=== PATIENT | male | born 1970 | race Caucasian/White ===

== ENCOUNTER 2017-07-06 00:24 | Outpatient (CLI) | payer MEDICARE, MEDICAID ==
[~2017-07-06 00:24] MED LIST: FLUT16SP2; GABA-338 PO; INSU100V36 SQ; LANTUS SQ; NABU500T2 PO; NORCO10T PO; PAM25C PO; RISP1SOL PO; TRAZ-91 PO
== END 2017-07-06 23:59 | disposition home or self-care (01) ==
LOC: DIABETIC 00:24
PROVIDERS: ATTEND Family Medicine
DX: E11.9 Type 2 diabetes mellitus without complications (principal)
CPT/HCPCS: G0108

== ENCOUNTER 2017-09-11 14:17 | Emergency (ER) | payer MEDICARE, MEDICAID ==
[~2017-09-11] VITALS: Ht 170.2 cm; Wt 109.0 kg
[2017-09-11 14:39] VITALS: BP 131/104
[2017-09-11] MEDS ORDERED: ONDA4TAB9 PO (14:59)
[2017-09-11] MEDS ORDERED: HYDR-3965 PO (14:59)
[2017-09-11] MEDS ORDERED: acetaminophen 325mg tablet PO ONE (15:00)
== END 2017-09-11 15:18 | disposition home or self-care (01) ==
LOC: ER 14:18
DX: M23.92 Unspecified internal derangement of left knee (principal); E10.42 Type 1 diabetes mellitus with diabetic polyneuropathy; Z98.890 Other specified postprocedural states; Z88.5 Allergy status to narcotic agent; Z79.4 Long term (current) use of insulin; Z79.899 Other long term (current) drug therapy
CPT/HCPCS: 29505; 99283

== ENCOUNTER 2018-04-22 10:13 | Emergency (ER) | payer MEDICARE, MEDICAID ==
[~2018-04-22] VITALS: Ht 165.1 cm; Wt 99.1 kg
[~2018-04-22 10:13] MED LIST changes: +HYDR-4383 PO
[2018-04-22] MEDS ORDERED: ketorolac tromethamine 15mg/ml inj. IM ONE (11:20)
[2018-04-22] MEDS ORDERED: LIDOcaine 5% patch TP SCH (11:45)
[2018-04-22] MEDS ORDERED: LIDOcaine 5% patch TP ONE (11:45)
[2018-04-22] MEDS ORDERED: LIDO700A47 TOP (11:50)
[2018-04-22 11:51] VITALS: BP 125/69
== END 2018-04-22 11:59 | disposition home or self-care (01) ==
LOC: ER 10:13
DX: M54.5 Low back pain (principal); E11.42 Type 2 diabetes mellitus with diabetic polyneuropathy; Z98.890 Other specified postprocedural states; Z88.5 Allergy status to narcotic agent; Z79.4 Long term (current) use of insulin; Z79.899 Other long term (current) drug therapy
CPT/HCPCS: 96372; 99283; J1885

== ENCOUNTER 2020-12-18 15:08 | Emergency (ER) | payer MEDICARE, MEDICAID ==
[~2020-12-18 15:08] MED LIST changes: +AMIT100T2 PO; +BUSP10TA16; +CLON0.2T PO; +DULO20CA50 PO; -HYDR-4383 PO; +IBUP-1986 PO; -NABU500T2 PO; -NORCO10T PO; +OMEP20CA15 PO; -PAM25C PO; +ROSU5TAB12; +TOP100T PO; -TRAZ-91 PO
[2020-12-19] MEDS ORDERED: AMOX-422 PO (04:39)
== END 2020-12-18 15:18 | disposition left against medical advice (07) ==
LOC: ER 15:09
DX: Z53.21 Procedure and treatment not carried out due to patient leaving prior to being seen by health care provider (principal)

== ENCOUNTER 2020-12-19 03:16 | Emergency (ER) | payer MEDICARE, MEDICAID ==
[~2020-12-19] VITALS: Ht 167.6 cm; Wt 113.0 kg
[2020-12-19 03:36] VITALS: BP 134/73
[2020-12-19] MEDS ORDERED: AMOX-422 PO (04:39)
[2020-12-19] MEDS ORDERED: TETanus/Pertussis (Acell)/Diphther VAC/PF (Tdap-Adult) 0.5ml syringe IMVAC ONE (04:50)
== END 2020-12-19 05:01 | disposition home or self-care (01) ==
LOC: ER 03:16
DX: S51.852A Open bite of left forearm, initial encounter (principal); E11.9 Type 2 diabetes mellitus without complications; F32.9 Major depressive disorder, single episode, unspecified; Z88.5 Allergy status to narcotic agent; Z79.899 Other long term (current) drug therapy; W54.0XXA Bitten by dog, initial encounter; Y93.89 Activity, other specified; Y92.89 Other specified places as the place of occurrence of the external cause; Y99.8 Other external cause status
CPT/HCPCS: 90471; 90715; 99283

== ENCOUNTER 2022-02-21 10:24 | Emergency (ER) | payer BC, MEDICAID ==
[~2022-02-21] VITALS: Ht 166.4 cm; Wt 109.1 kg
[2022-02-21 10:30] VITALS: BP 112/65
[2022-02-21] MEDS ORDERED: HYDR-3965 PO (11:51)
== END 2022-02-21 12:30 | disposition home or self-care (01) ==
LOC: ER 10:25
DX: M25.461 Effusion, right knee (principal); M25.561 Pain in right knee; W19.XXXA Unspecified fall, initial encounter; Y93.89 Activity, other specified; Y92.89 Other specified places as the place of occurrence of the external cause; Y99.8 Other external cause status
CPT/HCPCS: 73564; 99284

== ENCOUNTER 2022-12-02 21:30 | Emergency (ER) | payer BC, MEDICAID ==
[~2022-12-02] VITALS: Ht 165.1 cm; Wt 106.8 kg
[~2022-12-02 21:30] MED LIST changes: +CYCL-1 PO
[2022-12-02 21:59] VITALS: BP 131/83; PULSE 77; RESP 16; TEMP 98; O2SAT 100
[2022-12-02] MEDS ORDERED: ketorolac trometh inj. 60 MG/2 ML VIAL IM ONE (22:55)
[2022-12-02] MEDS ORDERED: diazepam inj 5 MG/ML inj. IM ONE (22:55)
--- NOTE | 2022-12-02 23:44 | NUR ---
WOUNDS CLEANED AND DRESSING APPLLIED. \ PT EDUCATION GIVEN ON WOUND CARE.
[2022-12-02] MEDS ORDERED: NAPR-56 PO (23:57)
[2022-12-02] MEDS ORDERED: CYCL-1 PO (23:57)
== END 2022-12-03 00:17 | disposition home or self-care (01) ==
LOC: ER 21:32
DX: S80.212A Abrasion, left knee, initial encounter (principal); S80.211A Abrasion, right knee, initial encounter; W10.8XXA Fall (on) (from) other stairs and steps, initial encounter; Y93.89 Activity, other specified; Y92.89 Other specified places as the place of occurrence of the external cause; Y99.8 Other external cause status
CPT/HCPCS: 73610; 73630; 96372; 99284; J1885; J3360

== ENCOUNTER 2022-12-11 15:45 | Emergency (ER) | payer BC, MEDICAID ==
[~2022-12-11] VITALS: Ht 166.4 cm; Wt 112.7 kg
[~2022-12-11 15:45] MED LIST changes: +NAPR-56 PO
[2022-12-11 15:57] VITALS: TEMP 97.9
[2022-12-12 02:09] LABS: BASOPHILS # (AUTO) 0.1 X10'3 (0-0.2); BASOPHILS % (AUTO) 1.2 % (0-1); EOSINOPHILS # (AUTO) 0.3 X10'3 (0-0.9); EOSINOPHILS % (AUTO) 6.1 % (0-6); HEMATOCRIT 36.8 % (42.0-52.0); HEMOGLOBIN 12.1 g/dl (14.0-17.9); LYMPHOCYTES # (AUTO) 1.7 X10'3 (1.1-4.8); LYMPHOCYTES % (AUTO) 30.4 % (21-51); MEAN CORPUSCULAR HEMOGLOBIN 29.4 PG (27.0-31.0); MEAN CORPUSCULAR HGB CONC 33.1 g/dL (33.0-36.5); MEAN CORPUSCULAR VOLUME 89.1 FL (78-98); MEAN PLATELET VOLUME 6.3 FL (7.4-10.4); MONOCYTES # (AUTO) 0.6 X10'3 (0-0.9); MONOCYTES % (AUTO) 11.1 % (2-12); NEUTROPHILS # (AUTO) 2.9 X10'3 (1.8-7.7); NEUTROPHILS % (AUTO) 51.2 % (42-75); PLATELET COUNT 313 X10'3 (140-440); RED BLOOD COUNT 4.13 X10'6 (4.70-6.10); RED CELL DISTRIBUTION WIDTH 13.8 % (11.5-14.5); WHITE BLOOD COUNT 5.7 X10'3 (4.5-11.0)
[2022-12-12 02:17] LABS: D-DIMER 0.84 MG/L FEU (0-0.50)
[2022-12-12 02:34] LABS: ALANINE AMINOTRANSFERASE 23 U/L (12-78); ALBUMIN 3.7 G/DL (3.4-5.0); ALKALINE PHOSPHATASE 68 IU/L (46-116); ANION GAP 9 (8-16); ASPARTATE AMINO TRANSFERASE 18 U/L (10-37); BILIRUBIN,TOTAL 0.4 MG/DL (0.1-1.0); BLOOD UREA NITROGEN 15 MG/DL (7-18); BUN/CREATININE RATIO 14.4 (10.0-20.0); C-REACTIVE PROTEIN 0.33 MG/DL (0.0-0.5); CALCIUM 8.6 MG/DL (8.5-10.1); CHLORIDE 108 MMOL/L (99-107); CREATININE 1.04 MG/DL (0.60-1.10); GLUCOSE 95 MG/DL (70-104); POTASSIUM 3.7 MMOL/L (3.5-5.1); SODIUM 139 MMOL/L (135-145); TOTAL CARBON DIOXIDE 22.3 MMOL/L (24-32); TOTAL PROTEIN 7.4 G/DL (6.4-8.2); eCRCL 74 ML/MIN; eGFR 75 ML/MIN
[2022-12-12 02:46] VITALS: BP 135/67; PULSE 69; RESP 16; O2SAT 97
[2022-12-12] MEDS ORDERED: CEPH-585 PO (03:10)
== END 2022-12-12 03:45 | disposition home or self-care (01) ==
LOC: ER 15:46
DX: L03.116 Cellulitis of left lower limb (principal); E11.9 Type 2 diabetes mellitus without complications; Z88.5 Allergy status to narcotic agent; Z79.2 Long term (current) use of antibiotics; Z79.899 Other long term (current) drug therapy; Z79.84 Long term (current) use of oral hypoglycemic drugs
CPT/HCPCS: 36415; 71046; 72100; 73560; 80053; 85025; 85379; 86140; 93970; 99284

== ENCOUNTER 2023-03-08 18:43 | Emergency (ER) | payer BC, MEDICAID ==
[~2023-03-08] VITALS: Ht 167.6 cm; Wt 105.0 kg
[~2023-03-08 18:43] MED LIST changes: +CEPH-585 PO; -NAPR-56 PO
[2023-03-08] MEDS ORDERED: NEOM10DR45 EACH EAR (20:01)
[2023-03-08 20:06] VITALS: BP 133/82; PULSE 81; RESP 16; TEMP 98.3; O2SAT 98
== END 2023-03-08 20:07 | disposition home or self-care (01) ==
LOC: ER 18:44
DX: H60.93 Unspecified otitis externa, bilateral (principal); E11.9 Type 2 diabetes mellitus without complications; F32.A Depression, unspecified; Z88.5 Allergy status to narcotic agent
CPT/HCPCS: 99282; 99283

== ENCOUNTER → 2023-03-25 | Emergency (ER) | payer BC, MEDICAID ==
[~2023-03-25] VITALS: Ht 165.1 cm; Wt 104.3 kg
[~2023-03-25] MED LIST changes: +CEFD300C3 PO
[2023-03-25 14:16] VITALS: BP 142/73; PULSE 94; RESP 16; TEMP 98; O2SAT 98
== END | disposition home or self-care (01) ==
LOC: ER 12:19
DX: J20.9 Acute bronchitis, unspecified (principal); E11.40 Type 2 diabetes mellitus with diabetic neuropathy, unspecified; Z88.8 Allergy status to other drugs, medicaments and biological substances; Z79.899 Other long term (current) drug therapy; Z79.4 Long term (current) use of insulin
CPT/HCPCS: 71045; 99283

== ENCOUNTER 2023-03-26 21:57 | Emergency (ER) | payer BC, MEDICAID ==
[~2023-03-26] VITALS: Ht 165.1 cm; Wt 103.2 kg
[2023-03-26 22:00] VITALS: BP 139/61; PULSE 88; RESP 18; TEMP 98.7; O2SAT 98
== END 2023-03-26 22:53 | disposition home or self-care (01) ==
LOC: ER 21:57
DX: H92.02 Otalgia, left ear (principal)
CPT/HCPCS: 99281

== ENCOUNTER 2023-05-07 16:55 | Emergency (ER) | payer BC, MEDICAID ==
[~2023-05-07] VITALS: Ht 166.4 cm; Wt 102.8 kg
[~2023-05-07 16:55] MED LIST changes: -CEFD300C3 PO
[2023-05-07] MEDS: acetaminophen 325mg tablet PO ONE (20:01)
[2023-05-07] MEDS: ketorolac trometh inj. 60 MG/2 ML VIAL IM ONE (20:04)
[2023-05-07 20:10] VITALS: BP 111/84; PULSE 65; RESP 16; TEMP 97.9; O2SAT 98
== END 2023-05-07 20:11 | disposition home or self-care (01) ==
LOC: ER 16:56
DX: M54.2 Cervicalgia (principal); E11.9 Type 2 diabetes mellitus without complications; Z79.84 Long term (current) use of oral hypoglycemic drugs; Z88.5 Allergy status to narcotic agent; Z79.899 Other long term (current) drug therapy; Z79.2 Long term (current) use of antibiotics; Z79.1 Long term (current) use of non-steroidal anti-inflammatories (NSAID); W19.XXXA Unspecified fall, initial encounter; Y93.89 Activity, other specified; Y92.89 Other specified places as the place of occurrence of the external cause; Y99.8 Other external cause status
CPT/HCPCS: 70450; 72125; 73030; 96372; 99285; J1885

== ENCOUNTER 2024-02-19 20:21 | Emergency (ER) | payer BC, MEDICAID ==
[~2024-02-19] VITALS: Ht 165.1 cm; Wt 103.6 kg
[~2024-02-19 20:21] MED LIST changes: -CEPH-585 PO; -ROSU5TAB12; +ROSU5TAB51
[2024-02-19 21:20] VITALS: TEMP 98.9
[2024-02-19 21:58] VITALS: BP 119/62; PULSE 80; RESP 16; O2SAT 98
== END 2024-02-19 22:08 | disposition home or self-care (01) ==
LOC: ER 20:23
DX: S92.141A Displaced dome fracture of right talus, initial encounter for closed fracture (principal); E11.42 Type 2 diabetes mellitus with diabetic polyneuropathy; R07.89 Other chest pain; Z88.5 Allergy status to narcotic agent; Z79.899 Other long term (current) drug therapy; W19.XXXA Unspecified fall, initial encounter; Y93.89 Activity, other specified; Y92.89 Other specified places as the place of occurrence of the external cause; Y99.8 Other external cause status
CPT/HCPCS: 73610; 99284; L4360

== ENCOUNTER 2024-08-23 18:27 | Emergency (ER) | payer BC, MEDICAID ==
[~2024-08-23] VITALS: Ht 165.1 cm; Wt 104.5 kg
[2024-08-23] MEDS ORDERED: AMOX-117 PO (19:48)
--- NOTE | 2024-08-23 19:49 | Physician Documentation ---
History of Present Illness ~ Chief Complaint: Bite-animal Stated Complaint: CAT BITE Time Seen by MD: 19:08 Primary Medical Doctor: None HPI 54-year-old male presents to the ED with a complaint of a bites since the 1999 today. States he is in at developed increased pain swelling in his left forearm. denies Fever however. Tetanus within 5 years?: Yes Medication Reconciliation Allergies: Coded Allergies: codeine (Verified Allergy, Unknown, 02/19/24) Scheduled Amitriptyline Hcl (Amitriptyline Hcl), 1 TAB PO HS, (Reported) Amox Tr/Potassium Clavulanate (Augmentin 875-125 Tablet), 1 TAB PO Q12H Buspirone Hcl (Buspirone Hcl), BID, (Reported) Clonidine HCl (Clonidine HCl), 1 TABLET PO BID, (Reported) Cyclobenzaprine* (Cyclobenzaprine*), 1 TAB PO TID Cyclobenzaprine* (Cyclobenzaprine*), 1 TAB PO TID Duloxetine Hcl* (Cymbalta*), 1 CAP PO DAILY Gabapentin* (Gabapentin*), 300 MG PO TID, (Reported) Ibuprofen (Ibuprofen), 1 TAB PO Q8H, (Reported) Insulin Glargine,Hum.rec.anlog* (Lantus*), 40 UNITS SQ HS, (Reported) Insulin Lispro* (Humalog*), 8 SQ TID, (Reported) Omeprazole (Omeprazole), 1 CAP PO DAILY, (Reported) Risperidone (Risperdal), 4 MG PO HS, (Reported) Topiramate (Topamax), 2 TAB PO Q12H, (Reported) Miscellaneous Medications Fluticasone Propionate (Flonase), (Reported) Rosuvastatin Calcium (Rosuvastatin Calcium), (Reported) Past Medical History Past Medical History: Peripheral Neuropathy, Hernia, Diabetes, Depression Past Surgical History: orthopedic surgeries, other Alcohol Use: Rarely Drug Use: none Lives with: Family Lives In: Home Review of Systems All Other Systems at this time: Reviewed and Negative ROS As stated above in the HPI, otherwise all systems are reviewed and negative. Physical Exam Vital Signs: Temperature: 100.6, Heart Rate: 92, Respiratory Rate: 16, BP: 130/56, Pulse Oximetry: 99, Weight: 104.550 Oxygen Flow Rate: 0 Physical Exam General: Alert, no apparent distress. HEENT: PERRL, EOMI, no injection, moist mucous membranes. Extremities: Normal range of motion, no deformity. Small scratch with tamra rounding erythema and swelling on the left forearm. Neurologic: Oriented x4. Psychiatric: Normal mood and affect. Skin: Normal color, warm and dry. No edema, no ecchymosis. Progress Results/Orders Results/Orders Completed Orders - JOSUÉ PRITCHARD NP Amox Tr/Potassium Clavulanate (Augmentin (08/23/24 19:45) Vital Signs 08/23/24 18:39 Temp 100.6 Pulse 92 Resp 16 B/P (MAP) 130/56 Pulse Ox 99 O2 Flow Rate 0 Medical Decision Making Findings Patient presents with suspected cat scratch which has developed erythema and swelling on his arm. Going to treat him with Augmentin and discharge Differential Dx:Considerations: Include: Abrasion, Allergic reaction, Anaphylaxis, Cellulitis, Contusion, Fracture, Hematoma, Insect envenomation, Laceration, Neurovascular injury, Punture wound, Retained foreign body, Urticaria, Other Departure Disposition: 01 HOME / SELF CARE / HOMELESS Impression: Primary Impression: Cat bite Condition: Stable Discharge Instructions: Animal Bite, Adult Referrals: NO PRIMARY CARE PROVIDER (PCP) Prescriptions Amox Tr/Potassium Clavulanate (Augmentin 875-125 Tablet) 1 Each Tablet 1 TAB PO Q12H for 10 Days, #20 TAB Prov: JOSUÉ PRITCHARD NP 08/23/24 Education Educated: Patient Educated regarding: diagnosis Signature Scribe Signature: r Attestation: The note accurately reflects work and decisions made by me.Josué Pritchard - MICHAEL 08/23/24 19:48 JOSUÉ PRITCHARD NP August 23, 2024 19:49
[2024-08-23] MEDS: amox tr/potassium clavulanate 875/125mg TAB PO ONE (19:53)
[2024-08-23 20:00] VITALS: BP 128/58; PULSE 90; RESP 20; TEMP 100; O2SAT 98
== END 2024-08-23 20:01 | disposition home or self-care (01) ==
LOC: ER 18:28
DX: S51.852A Open bite of left forearm, initial encounter (principal); E11.42 Type 2 diabetes mellitus with diabetic polyneuropathy; Z88.5 Allergy status to narcotic agent; Z88.8 Allergy status to other drugs, medicaments and biological substances; W55.01XA Bitten by cat, initial encounter; Y93.89 Activity, other specified; Y92.89 Other specified places as the place of occurrence of the external cause; Y99.8 Other external cause status
CPT/HCPCS: 99283

== ENCOUNTER 2025-03-25 11:38 | Emergency (ER) | payer BC, MEDICAID ==
[~2025-03-25] VITALS: Ht 165.1 cm; Wt 93.1 kg
[~2025-03-25 11:38] MED LIST changes: +CIPR7.5D7 RIGHT EAR
--- NOTE | 2025-03-25 12:07 | Physician Documentation ---
History of Present Illness ~ Chief Complaint: Ankle pain Stated Complaint: MULTIPLE MED COMPLAINTS Time Seen by MD: 12:08 Primary Medical Doctor: None Source: patient Mode of Arrival: POV Exam Limitations: no limitations HPI 54-year-old with history of frequent mechanical falls is complaining of right ankle pain and back pain wanting a Toradol shot. Sees a provider Millie Modi witin 5 years: Yes Medication Reconciliation Allergies: Coded Allergies: codeine (Verified Allergy, Unknown, 03/25/25) Scheduled Amitriptyline Hcl (Amitriptyline Hcl), 1 TAB PO HS, (Reported) Buspirone Hcl (Buspirone Hcl), BID, (Reported) Ciprofloxacin HCl/Dexameth (Ciproflox-Dexameth Otic Susp), 4 DROP RIGHT EAR BID Clonidine HCl (Clonidine HCl), 1 TABLET PO BID, (Reported) Cyclobenzaprine* (Cyclobenzaprine*), 1 TAB PO TID Cyclobenzaprine* (Cyclobenzaprine*), 1 TAB PO TID Duloxetine Hcl* (Cymbalta*), 1 CAP PO DAILY Gabapentin* (Gabapentin*), 300 MG PO TID, (Reported) Ibuprofen (Ibuprofen), 1 TAB PO Q8H, (Reported) Insulin Glargine,Hum.rec.anlog* (Lantus*), 40 UNITS SQ HS, (Reported) Insulin Lispro* (Humalog*), 8 SQ TID, (Reported) Omeprazole (Omeprazole), 1 CAP PO DAILY, (Reported) Risperidone (Risperdal), 4 MG PO HS, (Reported) Topiramate (Topamax), 2 TAB PO Q12H, (Reported) Miscellaneous Medications Fluticasone Propionate (Flonase), (Reported) Rosuvastatin Calcium (Rosuvastatin Calcium), (Reported) Past Medical History Past Medical History: Peripheral Neuropathy, Hernia, Diabetes, Depression Past Surgical History: orthopedic surgeries, other Alcohol Use: Rarely Drug Use: none Lives with: Family Lives In: Home Review of Systems All Other Systems at this time: Reviewed and Negative Musculoskeletal: Reports: see HPI Physical Exam Vital Signs: RN Vital Signs have been reviewed: Yes, Temperature: 98.0, Source: Temporal, Heart Rate: 120, Respiratory Rate: 18, BP: 175/76, Pulse Oximetry: 99, Weight: 93.100 Oxygen Flow Rate: 0 Physical Exam General: Alert, no apparent distress. HEENT: moist mucous membranes. Neck: Full range of motion. Respiratory: No respiratory distress speaking in full sentences Chest: No accessory muscle use. Cardiovascular: Appears well perfused Neurologic: Oriented x4. Psychiatric: Normal mood and affect. Skin: Normal color, warm and dry. No edema, no ecchymosis. Progress Results/Orders Results/Orders Orders - SIMIN RODRIGUEZ NP Ankle, Complete(3vw Min) (03/25/25 13:18) Completed Orders - SIMIN RODRIGUEZ [employer] Ketorolac Trometh 30mg/Ml Vial (Toradol (03/25/25 13:05) Ankle, Complete(3vw Min) (03/25/25 13:18) Medications Received in ER Medications (Trade) Dose Ordered Sig/Shakira Route PRN Reason Start Time Stop Time Status Last Admin Dose Admin (Toradol inj. 30mg/ml) 30 mg ONCE ONCE IM 03/25/25 13:05 03/25/25 13:11 DC 03/25/25 13:18 30 MG Vital Signs 03/25/25 03/25/25 11:53 13:18 Temp 98.0 Pulse 120 Resp 18 16 B/P (MAP) 175/76 Pulse Ox 99 O2 Flow Rate 0 EKG/XRAY/CT/US/VASC/MRI Bone/Soft Tissue X-Ray (Ext.) : Additional Comment CLINICAL INDICATION: ankle pain TECHNIQUE: DI ANKLE, COMPLETE(3VW MIN) COMPARISON: None FINDINGS/IMPRESSION: : Well corticated osseous densities project inferior to the distal fibula and the adjacent to the lateral process of the talus which may be fracture fragments of indeterminate chronicity. Calcified athero sclerosis. Soft tissue swelling about the lateral malleolus. Medical Decision Making Additional information obtaine: old records Findings Patient has falls most recent fall with increased pain to right ankle and back requesting Toradol shot. X-ray of ankle show some old history of fracture but no new acute osseous abnormality. Velcro splint possible sprain follow up with primary General Diff Dx:Considerations: Include: Contusion, Sprain, Other Knee Diff Dx:Considerations: Unlikely: Abrasion, Arthritis, Contusion, DJD, Fracture-femur, Fracture-fibula, Fracture-patella, Fracture-tibia, Gout, Hemato ma, Laceration, Meniscus injury, Neurovascular injury, Open fracture, Rheumatoid arthritis, Septic, Sprain, Sprain-MCL, Sprain-LCL, Sprain-ACL, Sprain-PCL, Other Ankle Diff Dx:Considerations: Include: Abrasion, Arthritis, Contusion, Sprain, Other Foot Diff Dx:Considerations: Unlikely: Abrasion, Arthritis, Cellulitis, Contusion, Dislocation, DJD, Fracture-metatarsal, Fracture-phalynx, Fracture- tarsal, Gout, Hematoma, Ingrown toenail, Laceration, Malunion, Neurovascular injury, Open fracture, Paronychia, Puncture, Rheumatoid, Sprain, Septic, Subungual hematoma, Ulcer, Other Toe Diff Dx:Considerations: Unlikely: Abrasion, Cellulitis, Contusion, Dislocation, Felon, Fracture, Hematoma, Laceration, Neurovascular injury, Open fracture, Paronychia, Subungual hematoma, Other Departure Time of Disposition: 14:32 Disposition: 01 HOME / SELF CARE / HOMELESS Impression: Primary Impression: Sprain of ankle Additional Impression: back pain Condition: Stable Discharge Instructions: Ankle Sprain Additional Instructions: Follow up with primary care and maintain good glucose control with the neuropathy of your feet which is likely contributing to frequent falls. Monitor for any new or worsening symptoms feel free to return to the ER Referrals: NO PRIMARY CARE PROVIDER (PCP) Education Educated: Patient Educated regarding: diagnosis, treatment, need for follow up Signature Scribe Signature: No scribe Attestation: The note accurately reflects work and decisions made by me.Simin MCNEILL 03/25/25 12:07 SIMIN RODRIGUEZ NP Mar 25, 2025 12:07
[2025-03-25] MEDS: ketorolac trometh 30MG/ML vial 30 MG/ML VIAL IM ONE (13:18)
--- NOTE | 2025-03-25 14:30 | RADIOLOGY REPORT ---
CLINICAL INDICATION: ankle pain TECHNIQUE: DI ANKLE, COMPLETE(3VW MIN) COMPARISON: None FINDINGS/IMPRESSION: : Well corticated osseous densities project inferior to the distal fibula and the adjacent to the lateral process of the talus which may be fracture fragments of indeterminate chronicity. Calcified athero sclerosis. Soft tissue swelling about the lateral malleolus.
[2025-03-25 14:46] VITALS: BP 146/74; PULSE 97; RESP 16; TEMP 98; O2SAT 98
== END 2025-03-25 14:47 | disposition home or self-care (01) ==
LOC: ER 11:39
DX: S93.491A Sprain of other ligament of right ankle, initial encounter (principal); E11.42 Type 2 diabetes mellitus with diabetic polyneuropathy; F32.A Depression, unspecified; Z88.5 Allergy status to narcotic agent; Z79.899 Other long term (current) drug therapy; Z98.890 Other specified postprocedural states; W18.30XA Fall on same level, unspecified, initial encounter; Y93.89 Activity, other specified; Y92.89 Other specified places as the place of occurrence of the external cause; Y99.8 Other external cause status
CPT/HCPCS: 29515; 73610; 96372; 99283; J1885; L1930